=== PATIENT | male | born 1975 | race African-American/Black ===

== ENCOUNTER 2020-02-26 05:35 | Inpatient (IN) | payer MEDICAID, OTHER ==
[~2020-02-26] VITALS: Ht 182.9 cm; Wt 91.6 kg
[2020-02-26] MEDS ORDERED: HYDR-1475 PO (05:40)
[2020-02-26] MEDS ORDERED: LISI-661 PO (05:40)
[2020-02-26 06:45] LABS: COVID AG,FIA SOURCE NASOPHARYNGEAL
[2020-02-26 06:51] LABS: BASOPHILS % (AUTO) 0.4 % (0.0-2.0); EOSINOPHILS % (AUTO) 0.3 % (1.0-6.0); HEMATOCRIT 41.4 % (41-53); HEMOGLOBIN 13.3 g/dL (13.5-17.5); LYMPHOCYTES # (AUTO) 0.9 K/uL (1.0-4.8); LYMPHOCYTES % (AUTO) 9.8 % (22.0-44.0); MEAN CORPUSCULAR HEMOGLOBIN 25.4 pg (26.0-34.0); MEAN CORPUSCULAR HGB CONC 32.2 G/dL (31.0-37.0); MEAN CORPUSCULAR VOLUME 79 fL (80-100); MONOCYTES # (AUTO) 0.7 K/uL (0.1-1.0); MONOCYTES % (AUTO) 7.6 % (2.0-9.0); NEUTROPHILS # (AUTO) 7.9 K/uL (1.8-7.7); NEUTROPHILS % (AUTO) 81.9 % (40.0-70.0); PLATELET COUNT (AUTO) 309 K/uL (150-450); RED BLOOD CELL COUNT(AUTO) 5.25 MIL/uL (4.50-5.90)
[2020-02-26 06:58] LABS: CALCIUM, TOTAL 8.9 mg/dL (8.8-10.5); CREATININE 3.78 mg/dL (0.60-1.30); POTASSIUM 3.9 mmol/L (3.5-5.1)
[2020-02-26] MEDS ORDERED: CefTRIAXone 1 GM/DEXTROSE 50 ML IV ONE (07:00)
[2020-02-26] MEDS ORDERED: AZITHROMYCIN 500 MG/NS 250 ML IV ONE (07:00)
[2020-02-26 07:03] LABS: D-DIMER 0.86 mg/L FEU (0.00-0.50)
[2020-02-26 07:16] LABS: ALBUMIN 2.5 g/dL (3.4-5.0); BILIRUBIN,TOTAL 0.6 mg/dL (0.1-1.0); C-REACTIVE PROTEIN QUANT 4.73 mg/dL (0.00-0.30); TOTAL PROTEIN, SERUM 7.1 g/dL (6.4-8.2)
[2020-02-26 07:20] LABS: BILIRUBIN,URINE NEGATIVE (NEGATIVE); GLUCOSE, URINE (UA) NEGATIVE (NEGATIVE); KETONES,URINE NEGATIVE (NEGATIVE); NITRATE,URINE NEGATIVE (NEGATIVE); PH,URINE 5.5 (5.0-8.0); PROTEIN,URINE SEE CONFIRM (NEGATIVE); UROBILINOGEN,URINE 0.2 mg/dL (<=1.0)
[2020-02-26 07:37] LABS: APPEARANCE,URINE HAZY (CLEAR); LEUKOCYTE ESTERASE ,URINE TRACE (NEGATIVE); OCCULT BLOOD,URINE TRACE (NEGATIVE)
[2020-02-26 07:38] LABS: BACTERIA,URINE None Seen /HPF (None Seen); FINE GRANULAR CASTS,URINE 0-2 /LPF (None Seen); RBC,URINE 0-2 /HPF (0-2); SULFOSALICYLIC ACID,URINE 3+ (Negative); WBC,URINE 0-2 /HPF (0-5)
[2020-02-26] MEDS ORDERED: ACETAMINOPHEN 325 MG TABLET PO PRN (08:00)
[2020-02-26] MEDS ORDERED: 0.9% SODIUM CHLORIDE 10 ML SYRINGE IVP PRN (08:00)
[2020-02-26] MEDS ORDERED: ONDANSETRON HCL 4 MG/2 ML VIAL IVP PRN (08:00)
[2020-02-26 08:10] LABS: INFLUENZA TYPE A NEGATIVE FOR TYPE A (NEGATIVE); INFLUENZA TYPE B NEGATIVE FOR TYPE B (NEGATIVE)
[2020-02-26] MEDS: OXYGEN THERAPY IH SCH ×2 (08:38→19:56)
[2020-02-26 10:35] VITALS: BP 153/130
[2020-02-26] MEDS ORDERED: ASPIRIN 325 MG TABLET PO ONE (11:45)
[2020-02-26] MEDS ORDERED: FUROSEMIDE 40 MG/4 ML VIAL IVP ONE (11:45)
[2020-02-26] MEDS: AmLODIPine BESYLATE 10 MG TABLET PO SCH (12:24)
[2020-02-26 12:54] LABS: FREE T4 (FREE THYROXINE) 1.44 ng/dL (0.76-1.46); THYROID STIMULATING HORMONE 1.31 uIU/mL (0.36-3.74)
[2020-02-26 15:21] VITALS: BP 146/110
[2020-02-26 15:42] LABS: CREATININE,URINE RANDOM 24.9 mg/dL (30.0-125.0)
[2020-02-26] MEDS: CARVEDILOL 12.5 MG TABLET PO SCH ×2 (15:58→19:56)
[2020-02-26 16:00] VITALS: BP 152/127
[2020-02-26] MEDS: FUROSEMIDE 40 MG/4 ML VIAL IVP SCH (18:04)
[2020-02-26 18:09] VITALS: BP 140/106
[2020-02-26 19:43] VITALS: BP 130/99
[2020-02-26 23:06] LABS: BASOPHILS % (AUTO) 0.3 % (0.0-2.0); EOSINOPHILS % (AUTO) 0.1 % (1.0-6.0); HEMATOCRIT 37.2 % (41-53); LYMPHOCYTES # (AUTO) 0.7 K/uL (1.0-4.8); LYMPHOCYTES % (AUTO) 6.9 % (22.0-44.0); MEAN CORPUSCULAR HEMOGLOBIN 25.3 pg (26.0-34.0); MEAN CORPUSCULAR HGB CONC 32.4 G/dL (31.0-37.0); MEAN CORPUSCULAR VOLUME 78 fL (80-100); MONOCYTES # (AUTO) 0.8 K/uL (0.1-1.0); MONOCYTES % (AUTO) 8.4 % (2.0-9.0); NEUTROPHILS # (AUTO) 8.3 K/uL (1.8-7.7); NEUTROPHILS % (AUTO) 84.3 % (40.0-70.0); PLATELET COUNT (AUTO) 277 K/uL (150-450); RED BLOOD CELL COUNT(AUTO) 4.76 MIL/uL (4.50-5.90); RED CELL DISTRIBUTION WIDTH 15.2 % (11.5-14.5)
[2020-02-26 23:41] LABS: CREATININE 4.22 mg/dL (0.60-1.30); POTASSIUM 4.7 mmol/L (3.5-5.1)
[2020-02-26 23:42] LABS: ALBUMIN 2.1 g/dL (3.4-5.0); BILIRUBIN,TOTAL 0.6 mg/dL (0.1-1.0); C-REACTIVE PROTEIN QUANT 7.17 mg/dL (0.00-0.30); CALCIUM, TOTAL 8.4 mg/dL (8.8-10.5); TOTAL PROTEIN, SERUM 6.3 g/dL (6.4-8.2)
[2020-02-27] VITALS (9 sets, daily range): BP systolic 88–143; BP diastolic 64–112
[2020-02-27] MEDS: FUROSEMIDE 40 MG/4 ML VIAL IVP SCH ×3 (00:20→15:49)
[2020-02-27 06:47] LABS: BASOPHILS % (AUTO) 0.3 % (0.0-2.0); EOSINOPHILS % (AUTO) 0.2 % (1.0-6.0); HEMATOCRIT 37.6 % (41-53); HEMOGLOBIN 12.4 g/dL (13.5-17.5); LYMPHOCYTES # (AUTO) 0.9 K/uL (1.0-4.8); LYMPHOCYTES % (AUTO) 9.5 % (22.0-44.0); MEAN CORPUSCULAR HEMOGLOBIN 26.1 pg (26.0-34.0); MEAN CORPUSCULAR VOLUME 79 fL (80-100); MONOCYTES # (AUTO) 0.9 K/uL (0.1-1.0); MONOCYTES % (AUTO) 9.5 % (2.0-9.0); NEUTROPHILS # (AUTO) 7.5 K/uL (1.8-7.7); NEUTROPHILS % (AUTO) 80.5 % (40.0-70.0); PLATELET COUNT (AUTO) 281 K/uL (150-450); RED BLOOD CELL COUNT(AUTO) 4.76 MIL/uL (4.50-5.90); RED CELL DISTRIBUTION WIDTH 15.6 % (11.5-14.5)
[2020-02-27 07:20] LABS: ALBUMIN 2.2 g/dL (3.4-5.0); BILIRUBIN,TOTAL 0.6 mg/dL (0.1-1.0); C-REACTIVE PROTEIN QUANT 8.62 mg/dL (0.00-0.30); CALCIUM, TOTAL 8.7 mg/dL (8.8-10.5); CREATININE 4.06 mg/dL (0.60-1.30); POTASSIUM 4.2 mmol/L (3.5-5.1); THYROID STIMULATING HORMONE 0.84 uIU/mL (0.36-3.74); TOTAL PROTEIN, SERUM 6.5 g/dL (6.4-8.2)
[2020-02-27] MEDS: CARVEDILOL 12.5 MG TABLET PO SCH (08:25)
[2020-02-27] MEDS: AmLODIPine BESYLATE 10 MG TABLET PO SCH (08:25)
[2020-02-27] MEDS: CARVEDILOL 25 MG TABLET PO SCH ×2 (10:10→20:56)
[2020-02-27] MEDS: CloNIDine HCL 0.1 MG TABLET PO SCH ×2 (10:10→21:00)
[2020-02-27] MEDS ORDERED: GuaiFENesin/D-METHORPHAN/PHENYLEPH 5 ML LIQUID ORAL.SYG PO PRN (11:30)
[2020-02-27] MEDS: CefTRIAXone 1 GM/DEXTROSE 50 ML IV SCH (13:03)
[2020-02-27] MEDS: AZITHROMYCIN 500 MG/NS 250 ML IV SCH (14:02)
[2020-02-27] MEDS ORDERED: ALPRAZolam 0.5 MG TABLET PO PRN (15:15)
[2020-02-27] MEDS ORDERED: SODIUM CHLORIDE 0.9% 250 ML IV ONE (16:00)
[2020-02-28 06:02] VITALS: BP 102/75
[2020-02-28 06:22] LABS: BASOPHILS % (AUTO) 0.5 % (0.0-2.0); EOSINOPHILS % (AUTO) 0.2 % (1.0-6.0); HEMATOCRIT 34.1 % (41-53); HEMOGLOBIN 11.5 g/dL (13.5-17.5); LYMPHOCYTES # (AUTO) 1.5 K/uL (1.0-4.8); LYMPHOCYTES % (AUTO) 15.4 % (22.0-44.0); MEAN CORPUSCULAR HEMOGLOBIN 26.6 pg (26.0-34.0); MEAN CORPUSCULAR HGB CONC 33.8 G/dL (31.0-37.0); MEAN CORPUSCULAR VOLUME 79 fL (80-100); MONOCYTES # (AUTO) 0.9 K/uL (0.1-1.0); NEUTROPHILS # (AUTO) 7.2 K/uL (1.8-7.7); NEUTROPHILS % (AUTO) 74.9 % (40.0-70.0); PLATELET COUNT (AUTO) 253 K/uL (150-450); RED BLOOD CELL COUNT(AUTO) 4.33 MIL/uL (4.50-5.90); RED CELL DISTRIBUTION WIDTH 15.5 % (11.5-14.5)
[2020-02-28 06:51] LABS: C-REACTIVE PROTEIN QUANT 10.42 mg/dL (0.00-0.30); CALCIUM, TOTAL 8.5 mg/dL (8.8-10.5); CREATININE 4.22 mg/dL (0.60-1.30); MAGNESIUM 2.1 mg/dL (1.80-2.40)
[2020-02-28 08:09] VITALS: BP 118/70
[2020-02-28] MEDS: CloNIDine HCL 0.1 MG TABLET PO SCH (09:00)
[2020-02-28] MEDS: AmLODIPine BESYLATE 10 MG TABLET PO SCH (09:00)
[2020-02-28] MEDS: FUROSEMIDE 40 MG/4 ML VIAL IVP SCH ×3 (09:01→16:00)
[2020-02-28] MEDS: CARVEDILOL 25 MG TABLET PO SCH ×2 (09:01→20:55)
[2020-02-28] MEDS: ISOSORB DINIT/HYDRALAZINE HCL 20-37.5 MG TABLET PO SCH ×3 (11:35→20:56)
[2020-02-28] MEDS: CefTRIAXone 1 GM/DEXTROSE 50 ML IV SCH (11:36)
[2020-02-28] MEDS ORDERED: SODIUM CHLORIDE 0.9% 250 ML IV ONE (11:47)
[2020-02-28 12:07] VITALS: BP 107/79
[2020-02-28] MEDS: AZITHROMYCIN 500 MG/NS 250 ML IV SCH (13:02)
[2020-02-28] MEDS ORDERED: SODIUM CHLORIDE 0.9% 100 ML ONE (13:16)
[2020-02-28 16:06] VITALS: BP 100/70
[2020-02-28 19:51] VITALS: BP 127/91
[2020-02-28] MEDS: AmLODIPine BESYLATE 5 MG TABLET PO SCH (20:55)
[2020-02-28 23:55] VITALS: BP 101/68
[2020-02-29 03:31] VITALS: BP 110/75
[2020-02-29 06:36] LABS: BASOPHILS % (AUTO) 0.4 % (0.0-2.0); EOSINOPHILS % (AUTO) 0.4 % (1.0-6.0); HEMATOCRIT 34.1 % (41-53); HEMOGLOBIN 11.3 g/dL (13.5-17.5); LYMPHOCYTES # (AUTO) 1.2 K/uL (1.0-4.8); LYMPHOCYTES % (AUTO) 16.7 % (22.0-44.0); MEAN CORPUSCULAR HEMOGLOBIN 26.2 pg (26.0-34.0); MEAN CORPUSCULAR HGB CONC 33.2 G/dL (31.0-37.0); MEAN CORPUSCULAR VOLUME 79 fL (80-100); MONOCYTES # (AUTO) 0.5 K/uL (0.1-1.0); MONOCYTES % (AUTO) 6.6 % (2.0-9.0); NEUTROPHILS # (AUTO) 5.6 K/uL (1.8-7.7); NEUTROPHILS % (AUTO) 75.9 % (40.0-70.0); PLATELET COUNT (AUTO) 265 K/uL (150-450); RED BLOOD CELL COUNT(AUTO) 4.32 MIL/uL (4.50-5.90); RED CELL DISTRIBUTION WIDTH 15.6 % (11.5-14.5)
[2020-02-29 07:25] LABS: ALBUMIN 1.9 g/dL (3.4-5.0); BILIRUBIN,TOTAL 0.2 mg/dL (0.1-1.0); C-REACTIVE PROTEIN QUANT 6.28 mg/dL (0.00-0.30); CALCIUM, TOTAL 8.3 mg/dL (8.8-10.5); CREATININE 4.02 mg/dL (0.60-1.30); MAGNESIUM 2.2 mg/dL (1.80-2.40); TOTAL PROTEIN, SERUM 5.8 g/dL (6.4-8.2)
[2020-02-29 08:01] VITALS: BP 121/85
[2020-02-29] MEDS: AmLODIPine BESYLATE 5 MG TABLET PO SCH (09:00)
[2020-02-29] MEDS: FUROSEMIDE 40 MG/4 ML VIAL IVP SCH ×2 (09:26)
[2020-02-29] MEDS: CARVEDILOL 25 MG TABLET PO SCH ×2 (09:26→21:00)
[2020-02-29] MEDS: ISOSORB DINIT/HYDRALAZINE HCL 20-37.5 MG TABLET PO SCH ×3 (09:26→20:27)
[2020-02-29] MEDS: CefTRIAXone 1 GM/DEXTROSE 50 ML IV SCH (11:24)
[2020-02-29 11:48] VITALS: BP 93/51
[2020-02-29] MEDS: BUMETANIDE 1 MG TABLET PO SCH (11:48)
[2020-02-29] MEDS: AZITHROMYCIN 500 MG/NS 250 ML IV SCH (12:36)
[2020-02-29 15:46] VITALS: BP 103/63
[2020-02-29 19:48] VITALS: BP 112/69
[2020-02-29 23:26] VITALS: BP 120/86
[2020-03-01 04:00] VITALS: BP 124/79
[2020-03-01 06:31] LABS: BASOPHILS % (AUTO) 0.5 % (0.0-2.0); EOSINOPHILS % (AUTO) 0.9 % (1.0-6.0); HEMATOCRIT 35.2 % (41-53); HEMOGLOBIN 11.4 g/dL (13.5-17.5); LYMPHOCYTES # (AUTO) 1.3 K/uL (1.0-4.8); LYMPHOCYTES % (AUTO) 20.3 % (22.0-44.0); MEAN CORPUSCULAR HGB CONC 32.3 G/dL (31.0-37.0); MEAN CORPUSCULAR VOLUME 80 fL (80-100); MONOCYTES # (AUTO) 0.4 K/uL (0.1-1.0); NEUTROPHILS # (AUTO) 4.7 K/uL (1.8-7.7); NEUTROPHILS % (AUTO) 72.3 % (40.0-70.0); PLATELET COUNT (AUTO) 297 K/uL (150-450); RED BLOOD CELL COUNT(AUTO) 4.39 MIL/uL (4.50-5.90); RED CELL DISTRIBUTION WIDTH 15.5 % (11.5-14.5)
[2020-03-01 07:06] LABS: BILIRUBIN,TOTAL 0.2 mg/dL (0.1-1.0); C-REACTIVE PROTEIN QUANT 3.52 mg/dL (0.00-0.30); CALCIUM, TOTAL 8.3 mg/dL (8.8-10.5); CREATININE 3.84 mg/dL (0.60-1.30); POTASSIUM 3.9 mmol/L (3.5-5.1)
[2020-03-01 07:44] VITALS: BP 136/98
[2020-03-01] MEDS: BUMETANIDE 1 MG TABLET PO SCH ×2 (08:43→13:06)
[2020-03-01] MEDS: ISOSORB DINIT/HYDRALAZINE HCL 20-37.5 MG TABLET PO SCH ×3 (08:44→20:34)
[2020-03-01] MEDS: CARVEDILOL 25 MG TABLET PO SCH ×2 (08:44→20:33)
[2020-03-01 11:07] VITALS: BP 128/88
[2020-03-01] MEDS: CefTRIAXone 1 GM/DEXTROSE 50 ML IV SCH (13:04)
[2020-03-01 14:35] LABS: CREATININE,SERUM FOR CRCL 3.84 mg/dL (0.60-1.30)
[2020-03-01] MEDS: AZITHROMYCIN 500 MG/NS 250 ML IV SCH (14:52)
[2020-03-01 16:08] VITALS: BP 112/78
[2020-03-01 19:45] VITALS: BP 124/76
[2020-03-01 23:57] VITALS: BP 134/81
[2020-03-02 03:10] LABS: HIV 1-2 SCREEN 4TH GEN W/RFLX Non Reactive (Non Reactive)
[2020-03-02 04:41] VITALS: BP 136/92
[2020-03-02 05:50] LABS: BASOPHILS % (AUTO) 0.6 % (0.0-2.0); EOSINOPHILS % (AUTO) 0.9 % (1.0-6.0); HEMATOCRIT 34.8 % (41-53); HEMOGLOBIN 11.2 g/dL (13.5-17.5); LYMPHOCYTES # (AUTO) 0.8 K/uL (1.0-4.8); MEAN CORPUSCULAR HEMOGLOBIN 25.6 pg (26.0-34.0); MEAN CORPUSCULAR HGB CONC 32.2 G/dL (31.0-37.0); MEAN CORPUSCULAR VOLUME 79 fL (80-100); MONOCYTES # (AUTO) 0.5 K/uL (0.1-1.0); NEUTROPHILS # (AUTO) 4.6 K/uL (1.8-7.7); NEUTROPHILS % (AUTO) 76.5 % (40.0-70.0); PLATELET COUNT (AUTO) 302 K/uL (150-450); RED BLOOD CELL COUNT(AUTO) 4.38 MIL/uL (4.50-5.90); RED CELL DISTRIBUTION WIDTH 15.8 % (11.5-14.5)
[2020-03-02 06:19] LABS: INR 1.1 (0.9-1.1); PROTHROMBIN TIME 11.9 SEC (9.4-11.6)
[2020-03-02 06:47] LABS: ALBUMIN 2.1 g/dL (3.4-5.0); BILIRUBIN,TOTAL 0.2 mg/dL (0.1-1.0); CALCIUM, TOTAL 8.5 mg/dL (8.8-10.5); CREATININE 3.51 mg/dL (0.60-1.30)
[2020-03-02 07:33] VITALS: BP 137/112
[2020-03-02] MEDS ORDERED: MIDAZOLAM HCL 2 MG/2 ML VIAL ONE ×2 (08:40→09:27)
[2020-03-02] MEDS ORDERED: FentaNYL CITRATE-PF 100 MCG/2 ML VIAL ONE (08:40)
[2020-03-02] MEDS ORDERED: NALOXONE HCL 0.4 MG/ML VIAL ONE (08:41)
[2020-03-02] MEDS ORDERED: ONDANSETRON HCL 4 MG/2 ML VIAL ONE (08:41)
[2020-03-02] MEDS ORDERED: FLUMAZENIL 0.1 MG/ML 5 ML VIAL IVP ONE (08:41)
[2020-03-02] MEDS ORDERED: GELATIN SPONGE,ABSORBABLE 12-7 MM TP ONE (09:27)
[2020-03-02] MEDS: BUMETANIDE 1 MG TABLET PO SCH ×2 (10:38→11:38)
[2020-03-02] MEDS: ISOSORB DINIT/HYDRALAZINE HCL 20-37.5 MG TABLET PO SCH ×3 (10:38→21:00)
[2020-03-02] MEDS: CARVEDILOL 25 MG TABLET PO SCH ×2 (10:38→21:47)
[2020-03-02 10:43] VITALS: BP 143/108
[2020-03-02] MEDS: CefTRIAXone 1 GM/DEXTROSE 50 ML IV SCH (12:12)
[2020-03-02] MEDS: AZITHROMYCIN 500 MG/NS 250 ML IV SCH (12:12)
[2020-03-02 12:39] LABS: THYROID STIMULATING HORMONE 1.16 uIU/mL (0.36-3.74)
[2020-03-02 15:17] VITALS: BP 107/75
[2020-03-02 19:38] VITALS: BP 103/69
[2020-03-02] MEDS: CloNIDine HCL 0.1 MG TABLET PO SCH (21:00)
[2020-03-02 23:14] VITALS: BP 127/85
[2020-03-03 04:57] VITALS: BP 141/101
[2020-03-03 05:43] LABS: ALPHA-1 (IFE & PEP) 0.4 g/dL (0.0-0.4); BETA (IFE & ELP) 1.2 g/dL (0.7-1.3); GAMMA GLOBULINS (IFE & ELP) 0.9 g/dL (0.4-1.8); IGM (IMMUNOFIXATION) 65 mg/dL (20-172)
[2020-03-03 07:31] VITALS: BP_SYST 128; BP_SYST 200; BP_DIAS 68; BP_DIAS 78
[2020-03-03] MEDS: BUMETANIDE 1 MG TABLET PO SCH ×2 (08:40→11:11)
[2020-03-03] MEDS: CloNIDine HCL 0.1 MG TABLET PO SCH (08:40)
[2020-03-03] MEDS: CARVEDILOL 25 MG TABLET PO SCH (08:40)
[2020-03-03] MEDS: ISOSORB DINIT/HYDRALAZINE HCL 20-37.5 MG TABLET PO SCH (08:40)
[2020-03-03 10:13] LABS: ORGANISM ID Not indicated.; S PNEUMO SOURCE Urine; STREP PNEUMONIAE AG URINE Negative (Negative); STREP.PNEUMO BODY FLUID CULT. Not indicated.
[2020-03-03 10:35] LABS: CALCIUM, TOTAL 8.5 mg/dL (8.8-10.5); CREATININE 3.48 mg/dL (0.60-1.30); POTASSIUM 4.1 mmol/L (3.5-5.1)
[2020-03-03] MEDS ORDERED: BUME1TAB34 PO (10:44)
[2020-03-03] MEDS ORDERED: CARV25 PO (10:45)
[2020-03-03] MEDS ORDERED: CLON0.1T83 PO (10:45)
[2020-03-03] MEDS ORDERED: ISOS1TAB2 PO (10:46)
[2020-03-03 11:04] VITALS: BP 110/82
[2020-03-03] MEDS: CefTRIAXone 1 GM/DEXTROSE 50 ML IV SCH (11:11)
[2020-03-03 11:14] LABS: LEGIONELLA PNEUMO AG URINE Negative (Negative)
[2020-03-03] MEDS: AZITHROMYCIN 500 MG/NS 250 ML IV SCH (13:24)
== END 2020-03-03 14:55 | disposition home or self-care (01) | DRG 194 ==
LOC: EMS 05:35 → 5N 09:45 → 5S 03-01 17:35
PROVIDERS: ADMIT Hospitalist; ATTEND Hospitalist
PROC: 0TB03ZX Excision of Right Kidney, Percutaneous Approach, Diagnostic (ICD-10-PCS; principal; 2020-03-02)
DX: I13.2 Hypertensive heart and chronic kidney disease with heart failure and with stage 5 chronic kidney disease, or end stage renal disease (principal); I50.21 Acute systolic (congestive) heart failure; N17.9 Acute kidney failure, unspecified; E87.1 Hypo-osmolality and hyponatremia; N18.5 Chronic kidney disease, stage 5; I42.9 Cardiomyopathy, unspecified; I42.8 Other cardiomyopathies; Z20.828 Contact with and (suspected) exposure to other viral communicable diseases; I47.9 Paroxysmal tachycardia, unspecified; E43 Unspecified severe protein-calorie malnutrition; Z68.27 Body mass index [BMI] 27.0-27.9, adult
CPT/HCPCS: 50200; 71250; 76770; 81050; 82043; 82570; 82575; 82728; 82784; 83605; 83615; 83735; 83935; 84100; 84145; 84155; 84156; 84165; 84166; 84300; 84439; 84443; 84540; 85379; 85384; 86038; 86140; 86160; 86256; 86334; 87040; 87070; 87081; 87340; 87389; 87426; 87449; 87804; 87899; 88300; 93005; 93306; 99242; 99291; J0456; J0696; J1940; J2250; J2310; J2405; J3010; J3490; J7050; 36415-L1; 36415-TC; 71045-TC; U0003-CS

== ENCOUNTER 2020-03-25 12:27 | Emergency (ER) | payer MEDICAID ==
[~2020-03-25] VITALS: Ht 182.9 cm; Wt 88.6 kg
[~2020-03-25 12:27] MED LIST: BUME1TAB34 PO; CARV25 PO; CLON0.1T83 PO; ISOS1TAB2 PO
[2020-03-25] MEDS ORDERED: LOSA50TA37 PO (12:40)
[2020-03-25] MEDS ORDERED: EPINEPHrine 1:10,000 [1 MG/10 ML] SYRINGE IVP ONE (14:00)
[2020-03-25] MEDS ORDERED: EPINEPHrine 1:1,000 [1 MG/ML] AMP IM ONE (14:00)
[2020-03-25] MEDS ORDERED: ACETAMINOPHEN 500 MG TABLET PO ONE (15:00)
[2020-03-25] MEDS ORDERED: SODIUM CHLORIDE 0.9% IV ONE (16:15)
[2020-03-25] MEDS ORDERED: PHENYLEPHRINE HCL IV ONE (16:15)
[2020-03-25] MEDS ORDERED: CloNIDine HCL 0.1 MG TABLET PO ONE ×2 (16:45→17:30)
[2020-03-25 18:40] VITALS: BP 129/98
== END 2020-03-25 19:01 | disposition home or self-care (01) ==
LOC: EMS 12:27
DX: N48.30 Priapism, unspecified (principal); I10 Essential (primary) hypertension; F12.90 Cannabis use, unspecified, uncomplicated; Z79.899 Other long term (current) drug therapy
CPT/HCPCS: 54220; 99285; J0171; 96374; J2370

== ENCOUNTER → 2020-03-26 | Outpatient (CLI) | payer MEDICAID ==
[~2020-03-26] MED LIST changes: -CLON0.1T83 PO; +LOSA50TA37 PO
[2020-03-26 12:27] LABS: APPEARANCE,URINE CLEAR (CLEAR); BILIRUBIN,URINE NEGATIVE (NEGATIVE); GLUCOSE, URINE (UA) NEGATIVE (NEGATIVE); KETONES,URINE TRACE mg/dL (NEGATIVE); LEUKOCYTE ESTERASE ,URINE NEGATIVE (NEGATIVE); NITRATE,URINE NEGATIVE (NEGATIVE); OCCULT BLOOD,URINE NEGATIVE (NEGATIVE); PH,URINE 5.5 (5.0-8.0); PROTEIN,URINE SEE CONFIRM (NEGATIVE); UROBILINOGEN,URINE 0.2 mg/dL (<=1.0)
[2020-03-26 12:35] LABS: ALBUMIN 2.7 g/dL (3.4-5.0); CALCIUM, TOTAL 9.3 mg/dL (8.8-10.5); CREATININE 3.4 mg/dL (0.60-1.30); POTASSIUM 4.2 mmol/L (3.5-5.1)
[2020-03-26 12:51] LABS: BACTERIA,URINE None Seen /HPF (None Seen); RBC,URINE 0-2 /HPF (0-2); SULFOSALICYLIC ACID,URINE 1+ (Negative); TRANSITIONAL EPI CELLS,URINE Rare /LPF (None Seen); WBC,URINE 0-2 /HPF (0-5)
[2020-03-26 12:52] LABS: SQUAMOUS EPITHELIAL CELL,UR Few /LPF (None Seen)
[2020-03-26 12:57] LABS: PROTEIN,URINE RANDOM 83 mg/dL (0-11.9)
== END | disposition home or self-care (01) ==
LOC: LABPV 11:38
PROVIDERS: ATTEND Hospitalist
DX: N18.4 Chronic kidney disease, stage 4 (severe) (principal)
CPT/HCPCS: 82043; 82570; 84156